=== PATIENT | female | born 1980 | race Caucasian/White ===

== ENCOUNTER 2018-04-06 05:51 | Day surgery (SDC) | END 2018-04-06 10:30 | disposition home or self-care (01) ==

== ENCOUNTER 2018-06-29 09:17 | Day surgery (SDC) | payer MEDICAID ==
--- NOTE | 2018-06-28 11:12 | PREOPHP ---
DATE OF ADMISSION: 06/29/2018 HISTORY OF PRESENT ILLNESS: Ms. Leela Loo is a 38-year-old 3, para 3, desires perma nent surgical sterilization. PAST MEDICAL HISTORY: None. MEDICATIONS: None. PAST SURGICAL HISTORY: None. OBSTETRIC HISTORY: Vaginal deliveries x3. GYNECOLOGIC HISTORY: [age], regular 3 to 4 days. Denies any sexually transmitted infections. She is sexually active with 1 partner. SOCIAL HISTORY: Denies any smoking, drugs or alcohol. FAMILY HISTORY: None. REVIEW OF SYSTEMS: All within normal except history of present illness. PHYSICAL EXAMINATION: HEENT: Within normal. LUNGS: CTA bilateral. CARDIOVASCULAR: S1, S2, regular rhythm. ABDOMEN: Soft, nontender, negative distention. EXTREMITIES: Negative edema. No calf tenderness. VAGINAL: Normal external genitalia. Cervix negative, CMT negative lesions. Adnexa negative mass, n ontender bilateral. Fundus within normal limits. ASSESSMENT: Multiparity, desires permanent surgical sterilization. PLAN: Consent for a laparoscopic bilateral tubal sterilization. Risks, benefits and alternatives ex plained. All questions were answered. Dictated By: ERICK ROCA/TEO Conf#: [id number] DID#: [id number]
[~2018-06-29] VITALS: Ht 157.5 cm; Wt 79.7 kg
[2018-06-29 10:07] VITALS: Ht 157.5 cm; Wt 79.7 kg
[2018-06-29 10:12] VITALS: BP 122/58; PULSE 82; RESP 16
== END 2018-06-29 10:20 | disposition home or self-care (01) ==
LOC: SDS 09:17
PROVIDERS: ATTEND Obstetrics & Gynecology
DX: Z30.2 Encounter for sterilization (principal); Z53.8 Procedure and treatment not carried out for other reasons
CPT/HCPCS: 84702; 85025; 86850; 86900; 86901